=== PATIENT | female | born 1950 | race Caucasian/White ===

== ENCOUNTER 2018-07-13 10:32 | Day surgery (SDC) | payer MEDICARE, OTHER ==
[~2018-07-13 10:32] MED LIST: CHONDR SU A NA/HYALUR INTRAOC KIT (SURGICARE) ONE; EPINEPHRINE INJ/PF 1 MG/1 ML AMPULE ONE; KETOROLAC TROMETHAMINE 0.45% 4 DROP/0.4 ML DROPERETTE OS PRN; LIDOCAINE 1% INJ-PF (10 MG/ML) 30 ML SDV ONE
[2018-07-13] MEDS: BESIFLOXACIN HCL 0.6% OPH SUSP 5 ML BOTTLE OS PRN ×3 (11:33→12:31)
[2018-07-13] MEDS: TROPICAMIDE 1% OPH SOLN 3 ML OS PRN ×3 (11:33→11:58)
[2018-07-13] MEDS: CYCLOPENTOLATE 0.2%/PHENYLEPHRINE 1% OPH SOLN 2 ML OS PRN ×3 (11:33→11:58)
[2018-07-13] MEDS: TETRACAINE HCL 0.5% OPH SOLN 2 ML OS PRN ×3 (11:33→12:03)
[2018-07-13] MEDS ORDERED: MIDAZOLAM 2 MG/2 ML INJ ONE (11:47)
[2018-07-13] MEDS ORDERED: FENTANYL CITRATE INJ/PF 100 MCG/2 ML AMPUL ONE (11:47)
--- NOTE | 2018-07-13 21:21 | [facility] DISCHARGE SUMMARY E ---
[facility] Discharge Summary NAME: DENNIS ELIZALDE AGE: 68Y ADMITTED: 07/13/2018 DISCHARGED: HOSPITAL COURSE: This is a 68-year-old female who underwent cataract extraction of the left eye. DIAGNOSIS: Cataract, left eye. She had cataract extraction with insertion of a ReSTOR Toric IOL. She underwent surgery because she was having difficulty night driving and glare from headlights. DISCHARGE INSTRUCTIONS: She should be on a regular diet. No bending at her waist, no heavy lifting. She should use her Besivance, Ilevro and Durezol at 3:00 p.m. and 8:00 p.m. Sleep with a rigid shield. I will see her for a 1-day postoperative tomorrow. DICTATING PHYSICIAN: MILIND POSADA M.D. [id number] [id number] PHY#: [id number] ID: [id number] JOB#: [id number] ACCT: [id number] cc:MILIND POSADA M.D. >
--- NOTE | 2018-07-13 21:21 | [facility] OPERATIVE REPORT E ---
[facility] Operative Report NAME: DENNIS ELIZALDE AGE: 68Y DATE OF SURGERY: 07/13/2018 ROOM: PREOPERATIVE DIAGNOSIS: CATARACT, LEFT EYE. POSTOPERATIVE DIAGNOSIS: CATARACT, LEFT EYE. OPERATION: Cataract extraction with insertion of a ReSTOR Toric IOL of the left eye. SURGEON: MILIND POSADA M.D. ANESTHESIA: Topical. PROCEDURE: After obtaining appropriate consent, the patient's left eye was prepped and draped in sterile fashion as well as the surgeon in a sterile manner and cataract surgery was started. First a paracentesis blade was used to make a side-port incision. Viscoelastic was used to inflate the anterior chamber. Next a 2.4 mm incision was made with a 2.4 mm blade, clear corneal temporally. A continuous capsulorrhexis was made using a cystotome and Utrata forceps. Following this hydrodissection was carried out to make the lens fully loose and mobile and it was rotated 180 degrees. Following this, a iitbtu-tfy-fbtssfj technique was used to phacoemulsify the lens with a CDE of 7.6. The remaining cortex was removed with irrigation/aspiration. Provisc was instilled into the capsular bag to inflate the bag. A SND1T3, 19.0 diopter lens was placed. The remaining viscoelastic material was removed with irrigation/aspiration. Following this, the incision was found to be watertight. Besivance was instilled into the eye and a protective shield was placed over the eye. The patient returned to the postoperative recovery in stable condition. DICTATING PHYSICIAN: MILIND PSOADA M.D. [id number] PHY#: [id number] ID: [id number] JOB#: [id number] ACCT: [id number] cc:MILIND POSADA M.D. >
== END 2018-07-13 13:28 | disposition home or self-care (01) ==
LOC: SC 10:32
PROVIDERS: ATTEND Internal Medicine
DX: H25.13 Age-related nuclear cataract, bilateral (principal); M19.90 Unspecified osteoarthritis, unspecified site; E07.9 Disorder of thyroid, unspecified; Z79.1 Long term (current) use of non-steroidal anti-inflammatories (NSAID); Z79.899 Other long term (current) drug therapy; Z87.891 Personal history of nicotine dependence
CPT/HCPCS: 66984; V2788; J2250; J3490 ×2; A9270; J0171; J3010; 142

== ENCOUNTER 2018-08-22 08:48 | Day surgery (SDC) | payer MEDICARE, OTHER ==
[~2018-08-22 08:48] MED LIST changes: +KETOROLAC TROMETHAMINE 0.45% 4 DROP/0.4 ML DROPERETTE OD PRN; -KETOROLAC TROMETHAMINE 0.45% 4 DROP/0.4 ML DROPERETTE OS PRN
[2018-08-22] MEDS: CYCLOPENTOLATE 0.2%/PHENYLEPHRINE 1% OPH SOLN 2 ML OD PRN ×3 (09:32→09:45)
[2018-08-22] MEDS: TROPICAMIDE 1% OPH SOLN 3 ML OD PRN ×3 (09:32→09:45)
[2018-08-22] MEDS: TETRACAINE HCL 0.5% OPH SOLN 4 ML OD PRN ×3 (09:32→10:04)
[2018-08-22] MEDS: BESIFLOXACIN HCL 0.6% OPH SUSP 5 ML BOTTLE OD PRN ×3 (09:32→10:33)
[2018-08-22] MEDS ORDERED: MIDAZOLAM 2 MG/2 ML INJ ONE ×2 (09:56→10:38)
[2018-08-22] MEDS ORDERED: FENTANYL CITRATE INJ/PF 100 MCG/2 ML AMPUL ONE (09:57)
[2018-08-22] MEDS ORDERED: ONDANSETRON HCL INJ/PF 4 MG/2 ML SDV ONE (10:02)
--- NOTE | 2018-08-22 13:41 | [facility] DISCHARGE SUMMARY E ---
[facility] Discharge Summary NAME: DENNIS ELIZALDE AGE: 68Y ADMITTED: 08/22/2018 DISCHARGED: 08/22/2018 HISTORY: This is a 68-year-old female who underwent cataract extraction of the right eye with insertion of the Restor Toric IOL of the right eye. DIAGNOSIS: Cataract, right eye. HOSPITAL COURSE: She underwent surgery because she was having difficulty with glare at night. DISCHARGE INSTRUCTIONS: She should be on a regular diet. No bending at her waist. No heavy lifting. She should use her Besivance, Ilevro, and Durezol at 3 p.m. and 8 p.m. and sleep with a rigid shield, and I will see her for a one day postoperative tomorrow. DICTATING PHYSICIAN: MILIND POSADA M.D. [id number] PHY#: [id number] ID: [id number] JOB#: [id number] ACCT: [id number] cc:MILIND POSADA M.D. >
--- NOTE | 2018-08-22 13:41 | [facility] OPERATIVE REPORT E ---
[facility] Operative Report NAME: DENNIS ELIZALDE AGE: 68Y DATE OF SURGERY: 08/22/2018 ROOM: PREOPERATIVE DIAGNOSIS: CATARACT, RIGHT EYE. POSTOPERATIVE DIAGNOSIS: CATARACT, RIGHT EYE. OPERATION: Cataract extraction with insertion of a Restor Toric IOL of the right eye. SURGEON: MILIND POSADA M.D. ANESTHESIA: Topical. PROCEDURE: After obtaining appropriate consent, the patient's right eye was prepped and draped in sterile fashion as well as the surgeon in a sterile manner and cataract surgery was started. First a paracentesis blade was used to make a side-port incision. Viscoelastic was used to inflate the anterior chamber. Next a 2.4 mm incision was made with a 2.4 mm blade, clear corneal temporally. A continuous capsulorrhexis was made using a cystotome and Utrata forceps. Following this hydrodissection was carried out to make the lens fully loose and mobile and it was rotated 90 degrees. Following this, a hosbln-ulw-pydcmvt technique was used to phacoemulsify the lens with a CDE of 6.62. The remaining cortex was removed with irrigation/aspiration. Provisc was instilled into the capsular bag to inflate the bag. A SND1T4, 19.0 diopter lens was placed rotated to 9 degrees. The remaining viscoelastic material was removed with irrigation/aspiration. Following this, the incision was found to be watertight. Besivance was instilled into the eye and a protective shield was placed over the eye. The patient returned to the postoperative recovery in stable condition. DICTATING PHYSICIAN: MILIND POSADA M.D. [id number] PHY#: [id number] ID: [id number] JOB#: [id number] ACCT: [id number] cc:MILIND POSADA M.D. >
== END 2018-08-22 11:11 | disposition home or self-care (01) ==
LOC: SC 08:48
PROVIDERS: ATTEND Internal Medicine
DX: H25.11 Age-related nuclear cataract, right eye (principal); Z96.1 Presence of intraocular lens; H40.89 Other specified glaucoma; M19.90 Unspecified osteoarthritis, unspecified site; E07.9 Disorder of thyroid, unspecified; Z79.899 Other long term (current) drug therapy
CPT/HCPCS: 66984; V2787; J2250; J3490 ×3; A9270; J0171; J2405; 142; J3010